=== PATIENT | female | born 1930 | race Caucasian/White ===

== ENCOUNTER 2016-11-01 15:26 | Inpatient (IN) | payer MEDICARE ==
[~2016-11-01] VITALS: Ht 162.6 cm; Wt 56.7 kg
[2016-11-01] MEDS ORDERED: SODIUM CHLORIDE 0.9% 1,000 ML ONE (16:31)
[2016-11-01] MEDS ORDERED: CEFTRIAXONE 1 GM VIAL ONE (16:38)
[2016-11-01] MEDS ORDERED: ALU/MAG/SIM 30 ML UDC PO PRN (18:20)
[2016-11-01] MEDS ORDERED: BISACODYL EC 5 MG TAB PO PRN (18:20)
[2016-11-01] MEDS ORDERED: BISACODYL 10 MG SUPP RECTAL PRN (18:20)
[2016-11-01] MEDS ORDERED: MAG HYDROX 30 ML UDC PO PRN (18:20)
[2016-11-01] MEDS ORDERED: SALINE FLUSH 10 ML FLUSH PRN (18:20)
[2016-11-01 20:42] VITALS: BP_SYST 175; BP_SYST 182; RESP 20; TEMP 98.6; Ht 162.6 cm; Wt 56.7 kg
[2016-11-01] MEDS: SODIUM CHLORIDE 0.9% 1,000 ML IV SCH (21:01)
[2016-11-01] MEDS: SALINE FLUSH 10 ML FLUSH SCH (21:02)
[2016-11-01] MEDS ORDERED: LEVOFLOXACIN 500 MG/100 ML 100 ML IV ONE (22:11)
[2016-11-01 22:44] VITALS: BP_SYST 191; RESP 20; TEMP 97.8
[2016-11-01] MEDS ORDERED: MISSING DOSE XX ONE (23:55)
[2016-11-02] VITALS (10 sets, daily range): BP systolic 85–186; RESP 17–20; TEMP 97.7–98.4
[2016-11-02] MEDS: ACETAMINOPHEN 325 MG TAB PO PRN ×2 (02:10→21:38)
[2016-11-02] MEDS: ONDANSETRON 4 MG VIAL IV PRN (05:21)
[2016-11-02] MEDS: SODIUM CHLORIDE 0.9% FLUSH BAG 500 ML IV SCH (05:38)
[2016-11-02] MEDS: SODIUM CHLORIDE 0.9% 1,000 ML IV SCH ×2 (06:34→21:47)
[2016-11-02] MEDS: SALINE FLUSH 10 ML FLUSH SCH ×2 (08:00→21:37)
[2016-11-02] MEDS: CEFTRIAXONE 1 GM in SODIUM CHLORIDE 0.9% 50 ML IV SCH (08:04)
[2016-11-02] MEDS: LEVOFLOXACIN 250 MG/50 ML 50 ML IV SCH (11:15)
[2016-11-02] MEDS: PRAVASTATIN 10 MG TAB PO SCH (22:21)
[2016-11-02] MEDS: METOPROLOL XL 100 MG TAB PO SCH (22:24)
[2016-11-03] VITALS (7 sets, daily range): BP systolic 117–192; RESP 18–20; TEMP 97.6–98.9
[2016-11-03] MEDS: SODIUM CHLORIDE 0.9% FLUSH BAG 500 ML IV SCH (05:55)
[2016-11-03] MEDS: LEVOTHYROXINE 0.112 MG TAB PO SCH (06:00)
[2016-11-03] MEDS: SODIUM CHLORIDE 0.9% 1,000 ML IV SCH ×2 (07:36→18:41)
[2016-11-03] MEDS: SALINE FLUSH 10 ML FLUSH SCH ×2 (08:00→20:22)
[2016-11-03] MEDS: CEFTRIAXONE 1 GM in SODIUM CHLORIDE 0.9% 50 ML IV SCH (08:52)
[2016-11-03] MEDS: ALLOPURINOL 100 MG TAB PO SCH (08:52)
[2016-11-03] MEDS: LORATADINE 10 MG TAB PO SCH (08:53)
[2016-11-03] MEDS: amLODIPine 5 MG TAB PO SCH (08:53)
[2016-11-03] MEDS: ASPIRIN EC 81 MG TAB PO SCH (08:53)
[2016-11-03] MEDS: LEVOFLOXACIN 250 MG/50 ML 50 ML IV SCH (10:26)
[2016-11-03] MEDS: ACETAMINOPHEN 325 MG TAB PO PRN ×2 (10:30→22:09)
[2016-11-03] MEDS: BISMUTH SUBSAL BTL PO SCH ×2 (17:19→23:13)
[2016-11-03] MEDS: METOPROLOL XL 100 MG TAB PO SCH (20:22)
[2016-11-03] MEDS: PRAVASTATIN 10 MG TAB PO SCH (20:22)
[2016-11-04] VITALS (7 sets, daily range): BP systolic 155–195; RESP 18–20; TEMP 97.7–98.5
[2016-11-04] MEDS: SODIUM CHLORIDE 0.9% 1,000 ML IV SCH ×2 (04:56→15:18)
[2016-11-04] MEDS: SODIUM CHLORIDE 0.9% FLUSH BAG 500 ML IV SCH ×2 (04:56→20:53)
[2016-11-04] MEDS: LEVOTHYROXINE 0.112 MG TAB PO SCH (06:02)
[2016-11-04] MEDS: BISMUTH SUBSAL BTL PO SCH ×4 (06:02→23:19)
[2016-11-04] MEDS: SALINE FLUSH 10 ML FLUSH SCH ×2 (08:57→20:00)
[2016-11-04] MEDS: CEFTRIAXONE 1 GM in SODIUM CHLORIDE 0.9% 50 ML IV SCH (08:58)
[2016-11-04] MEDS: ASPIRIN EC 81 MG TAB PO SCH (08:58)
[2016-11-04] MEDS: amLODIPine 5 MG TAB PO SCH (08:58)
[2016-11-04] MEDS: ALLOPURINOL 100 MG TAB PO SCH (08:58)
[2016-11-04] MEDS: LORATADINE 10 MG TAB PO SCH (08:58)
[2016-11-04] MEDS: ACETAMINOPHEN 325 MG TAB PO PRN ×2 (11:04→21:02)
[2016-11-04] MEDS ORDERED: DESITIN OINT TOPICAL PRN (12:15)
[2016-11-04] MEDS ORDERED: MISSING DOSE XX ONE (13:35)
[2016-11-04] MEDS: DIPHENOXYLATE/ATROP TAB 2.5 MG TAB PO PRN (15:18)
[2016-11-04] MEDS: KCL CR 20 MEQ TAB PO SCH (20:52)
[2016-11-04] MEDS: METOPROLOL XL 100 MG TAB PO SCH (20:52)
[2016-11-04] MEDS: PRAVASTATIN 10 MG TAB PO SCH (20:52)
[2016-11-05] VITALS (8 sets, daily range): BP systolic 152–222; RESP 18–20; TEMP 97.3–99.1
[2016-11-05] MEDS: SODIUM CHLORIDE 0.9% 1,000 ML IV SCH ×3 (01:45→22:42)
[2016-11-05] MEDS: BISMUTH SUBSAL BTL PO SCH ×4 (06:17→22:42)
[2016-11-05] MEDS: LEVOTHYROXINE 0.112 MG TAB PO SCH (06:17)
[2016-11-05] MEDS: SALINE FLUSH 10 ML FLUSH SCH ×2 (08:00→21:36)
[2016-11-05] MEDS ORDERED: MISSING DOSE XX ONE (08:15)
[2016-11-05] MEDS: ASPIRIN EC 81 MG TAB PO SCH (08:43)
[2016-11-05] MEDS: amLODIPine 5 MG TAB PO SCH (08:43)
[2016-11-05] MEDS: KCL CR 20 MEQ TAB PO SCH ×2 (08:43→21:36)
[2016-11-05] MEDS: CEFTRIAXONE 1 GM in SODIUM CHLORIDE 0.9% 50 ML IV SCH (08:43)
[2016-11-05] MEDS: ALLOPURINOL 100 MG TAB PO SCH (08:44)
[2016-11-05] MEDS: LORATADINE 10 MG TAB PO SCH (08:45)
[2016-11-05] MEDS: ONDANSETRON 4 MG VIAL IV PRN (11:19)
[2016-11-05] MEDS: METOPROLOL XL 100 MG TAB PO SCH (21:36)
[2016-11-05] MEDS: PRAVASTATIN 10 MG TAB PO SCH (21:36)
[2016-11-06] VITALS (11 sets, daily range): BP systolic 146–204; RESP 16–20; TEMP 97.2–98.7
[2016-11-06] MEDS ORDERED: MISSING DOSE XX ONE (01:15)
[2016-11-06] MEDS: DIPHENOXYLATE/ATROP TAB 2.5 MG TAB PO PRN ×2 (02:01→11:45)
[2016-11-06] MEDS: SODIUM CHLORIDE 0.9% FLUSH BAG 500 ML IV SCH (06:00)
[2016-11-06] MEDS: LEVOTHYROXINE 0.112 MG TAB PO SCH (06:12)
[2016-11-06] MEDS: BISMUTH SUBSAL BTL PO SCH ×4 (06:12→20:12)
[2016-11-06] MEDS: SALINE FLUSH 10 ML FLUSH SCH ×2 (08:00→20:12)
[2016-11-06] MEDS: SODIUM CHLORIDE 0.9% 1,000 ML IV SCH ×2 (08:49→19:02)
[2016-11-06] MEDS: ALLOPURINOL 100 MG TAB PO SCH (08:49)
[2016-11-06] MEDS: LORATADINE 10 MG TAB PO SCH (08:49)
[2016-11-06] MEDS: amLODIPine 5 MG TAB PO SCH (08:49)
[2016-11-06] MEDS: KCL CR 20 MEQ TAB PO SCH ×2 (08:49→22:20)
[2016-11-06] MEDS: ASPIRIN EC 81 MG TAB PO SCH (08:49)
[2016-11-06] MEDS: CEFTRIAXONE 1 GM in SODIUM CHLORIDE 0.9% 50 ML IV SCH (08:59)
[2016-11-06] MEDS: ACETAMINOPHEN 325 MG TAB PO PRN ×2 (15:10→20:13)
[2016-11-06] MEDS: PRAVASTATIN 10 MG TAB PO SCH (22:19)
[2016-11-06] MEDS: METOPROLOL XL 100 MG TAB PO SCH (22:19)
[2016-11-07] VITALS (8 sets, daily range): BP systolic 137–190; RESP 16–20; TEMP 97.4–97.8
[2016-11-07] MEDS: BISMUTH SUBSAL BTL PO SCH ×2 (03:16→12:34)
[2016-11-07] MEDS: SODIUM CHLORIDE 0.9% FLUSH BAG 500 ML IV SCH (06:00)
[2016-11-07] MEDS: LEVOTHYROXINE 0.112 MG TAB PO SCH (07:29)
[2016-11-07] MEDS: CEFTRIAXONE 1 GM in SODIUM CHLORIDE 0.9% 50 ML IV SCH (08:45)
[2016-11-07] MEDS: ASPIRIN EC 81 MG TAB PO SCH (08:46)
[2016-11-07] MEDS: amLODIPine 5 MG TAB PO SCH (08:46)
[2016-11-07] MEDS: LORATADINE 10 MG TAB PO SCH (08:46)
[2016-11-07] MEDS: SALINE FLUSH 10 ML FLUSH SCH (08:46)
[2016-11-07] MEDS: ONDANSETRON 4 MG VIAL IV PRN (08:46)
[2016-11-07] MEDS: ALLOPURINOL 100 MG TAB PO SCH (08:46)
[2016-11-07] MEDS: KCL CR 20 MEQ TAB PO SCH (08:46)
[2016-11-07] MEDS: ACETAMINOPHEN 325 MG TAB PO PRN (08:47)
[2016-11-07] MEDS ORDERED: PNEUMO VAC 25 MCG/0.5 ML VL IM.VACC ONE (11:45)
[2016-11-07] MEDS ORDERED: TUBERCULIN PPD 5 UNIT SYR ID.VACC ONE (21:00)
[2016-11-08] MEDS ORDERED: ENOXAPARIN 40 MG/0.4 ML SYR SUBQ SCH (09:00)
[2016-11-09] MEDS ORDERED: SKIN TEST: READ AND RECORD XX SCH (21:00)
[2016-11-14] MEDS ORDERED: TUBERCULIN PPD 5 UNIT SYR ID.VACC ONE (21:00)
== END 2016-11-07 14:45 | DRG 690 ==
LOC: ENRESERVDT → ENRESERVTM → ER 15:26 → ENPENDDIS 18:52 → EMR 18:52 → 3NT 20:45
PROVIDERS: ADMIT Internal Medicine; ATTEND Internal Medicine
CPT/HCPCS: 80053; 83630; 85025; 87177; 87329; 87338; 87493; 90732; 94799; 96361; 96374; 99222; 99232; 99239

== ENCOUNTER 2016-11-07 11:51 | Inpatient (IN) | payer MEDICARE ==
[~2016-11-07] VITALS: Ht 162.6 cm; Wt 56.7 kg
[2016-11-07] MEDS ORDERED: POLYETHYLENE GLYCOL 17 GM PACKET PO PRN (12:10)
[2016-11-07] MEDS ORDERED: PNEUMO VAC 25 MCG/0.5 ML VL IM.VACC ONE (12:10)
[2016-11-07] MEDS ORDERED: MAG HYDROX 30 ML UDC PO PRN (12:10)
[2016-11-07] MEDS: PANTOPRAZOLE 40 MG TAB PO SCH (15:08)
[2016-11-07 15:35] VITALS: BP_SYST 189; RESP 20; TEMP 98.6
[2016-11-07 15:40] VITALS: BP_SYST 173
[2016-11-07] MEDS: ACETAMINOPHEN 325 MG TAB PO PRN ×2 (16:43→21:09)
[2016-11-07] MEDS: PRAVASTATIN 10 MG TAB PO SCH (20:46)
[2016-11-07] MEDS: METOPROLOL XL 100 MG TAB PO SCH (20:46)
[2016-11-07] MEDS ORDERED: TUBERCULIN PPD 5 UNIT SYR ID.VACC ONE (21:00)
[2016-11-07] MEDS: ALU/MAG/SIM 30 ML UDC PO PRN (21:09)
[2016-11-08] MEDS: ACETAMINOPHEN 325 MG TAB PO PRN ×3 (02:15→20:59)
[2016-11-08 02:40] VITALS: BP_SYST 183; RESP 20; TEMP 98
[2016-11-08] MEDS: LEVOTHYROXINE 0.112 MG TAB PO SCH (06:11)
[2016-11-08] MEDS: PANTOPRAZOLE 40 MG TAB PO SCH (06:11)
[2016-11-08] MEDS: ASPIRIN EC 81 MG TAB PO SCH (08:03)
[2016-11-08] MEDS: LORATADINE 10 MG TAB PO SCH (08:03)
[2016-11-08] MEDS: ALLOPURINOL 100 MG TAB PO SCH (08:04)
[2016-11-08] MEDS: ENOXAPARIN 40 MG/0.4 ML SYR SUBQ SCH (08:05)
[2016-11-08] MEDS ORDERED: amLODIPine 5 MG TAB PO SCH (09:00)
[2016-11-08 11:24] VITALS: BP_SYST 145; TEMP 98
[2016-11-08 11:26] VITALS: RESP 20
[2016-11-08] MEDS: ALU/MAG/SIM 30 ML UDC PO PRN ×2 (12:17→21:43)
[2016-11-08 18:20] VITALS: BP_SYST 140; RESP 20; TEMP 98.2
[2016-11-08] MEDS: METOPROLOL XL 100 MG TAB PO SCH (20:58)
[2016-11-08] MEDS: PRAVASTATIN 10 MG TAB PO SCH (20:58)
[2016-11-09 01:35] VITALS: BP_SYST 178; RESP 20; TEMP 98.2
[2016-11-09] MEDS: PANTOPRAZOLE 40 MG TAB PO SCH (06:08)
[2016-11-09] MEDS: LEVOTHYROXINE 0.112 MG TAB PO SCH (06:08)
[2016-11-09] MEDS: ASPIRIN EC 81 MG TAB PO SCH (08:00)
[2016-11-09] MEDS: amLODIPine 10 MG TAB PO SCH (08:00)
[2016-11-09] MEDS: LORATADINE 10 MG TAB PO SCH (08:00)
[2016-11-09] MEDS: ALLOPURINOL 100 MG TAB PO SCH (08:00)
[2016-11-09] MEDS: ENOXAPARIN 40 MG/0.4 ML SYR SUBQ SCH (08:01)
[2016-11-09] MEDS: ALU/MAG/SIM 30 ML UDC PO PRN ×3 (09:53→22:04)
[2016-11-09 10:55] VITALS: BP_SYST 167
[2016-11-09 10:56] VITALS: RESP 20; TEMP 98.5
[2016-11-09 15:50] VITALS: BP_SYST 159; RESP 18; TEMP 98.2
[2016-11-09] MEDS: ACETAMINOPHEN 325 MG TAB PO PRN ×2 (16:09→22:02)
[2016-11-09] MEDS: PRAVASTATIN 10 MG TAB PO SCH (20:33)
[2016-11-09] MEDS: METOPROLOL XL 100 MG TAB PO SCH (20:33)
[2016-11-09] MEDS: SKIN TEST: READ AND RECORD XX SCH (20:34)
[2016-11-10 01:49] VITALS: BP_SYST 166; RESP 20; TEMP 97.8
[2016-11-10] MEDS: PANTOPRAZOLE 40 MG TAB PO SCH (05:57)
[2016-11-10] MEDS: LEVOTHYROXINE 0.112 MG TAB PO SCH (05:57)
[2016-11-10 08:02] VITALS: BP_SYST 156; TEMP 98.1
[2016-11-10 08:03] VITALS: RESP 20
[2016-11-10] MEDS: ASPIRIN EC 81 MG TAB PO SCH (08:24)
[2016-11-10] MEDS: LORATADINE 10 MG TAB PO SCH (08:24)
[2016-11-10] MEDS: ALLOPURINOL 100 MG TAB PO SCH (08:24)
[2016-11-10] MEDS: amLODIPine 10 MG TAB PO SCH (08:24)
[2016-11-10] MEDS: ENOXAPARIN 40 MG/0.4 ML SYR SUBQ SCH (08:26)
[2016-11-10 10:02] VITALS: Ht 162.6 cm; Wt 56.7 kg
[2016-11-10] MEDS: ACETAMINOPHEN 325 MG TAB PO PRN ×3 (10:23→20:08)
[2016-11-10] MEDS: [UNRECOGNIZED DRUG - OTHER] PO PRN (15:11)
[2016-11-10] MEDS: BISMUTH SUBSAL BTL PO PRN ×3 (15:17→23:50)
[2016-11-10] MEDS: CYANOCOBA 500 MCG TAB PO SCH (15:17)
[2016-11-10 15:33] VITALS: BP_SYST 171; RESP 20; TEMP 98.1
[2016-11-10] MEDS: METOPROLOL XL 100 MG TAB PO SCH (20:08)
[2016-11-10] MEDS: PRAVASTATIN 10 MG TAB PO SCH (20:08)
[2016-11-10] MEDS: REMOVE SALONPAS TOPICAL SCH ×2 (22:40→23:47)
[2016-11-11 00:39] VITALS: BP_SYST 160; RESP 18; TEMP 98.2
[2016-11-11] MEDS: LEVOTHYROXINE 0.112 MG TAB PO SCH (06:04)
[2016-11-11] MEDS: PANTOPRAZOLE 40 MG TAB PO SCH (06:04)
[2016-11-11] MEDS: REMOVE SALONPAS TOPICAL SCH ×3 (06:40→22:40)
[2016-11-11 08:41] VITALS: TEMP 98
[2016-11-11 08:42] VITALS: BP_SYST 157
[2016-11-11 08:43] VITALS: RESP 20
[2016-11-11] MEDS: LORATADINE 10 MG TAB PO SCH (09:51)
[2016-11-11] MEDS: amLODIPine 10 MG TAB PO SCH (09:51)
[2016-11-11] MEDS: ALLOPURINOL 100 MG TAB PO SCH (09:52)
[2016-11-11] MEDS: ASPIRIN EC 81 MG TAB PO SCH (09:53)
[2016-11-11] MEDS: ACETAMINOPHEN 325 MG TAB PO PRN ×2 (09:58→15:19)
[2016-11-11] MEDS: [UNRECOGNIZED DRUG - OTHER] PO PRN (09:58)
[2016-11-11] MEDS: ENOXAPARIN 40 MG/0.4 ML SYR SUBQ SCH (09:59)
[2016-11-11] MEDS: BISMUTH SUBSAL BTL PO PRN (10:00)
[2016-11-11] MEDS ORDERED: MISSING DOSE XX ONE (10:05)
[2016-11-11] MEDS: CYANOCOBA 500 MCG TAB PO SCH (15:18)
[2016-11-11] MEDS: LOPERAMIDE 2 MG CAPSULE PO PRN (15:18)
[2016-11-11 16:10] VITALS: BP_SYST 121; RESP 18; TEMP 98.4
[2016-11-11] MEDS: PRAVASTATIN 10 MG TAB PO SCH (20:15)
[2016-11-11] MEDS: METOPROLOL XL 100 MG TAB PO SCH (20:16)
[2016-11-12 01:02] VITALS: BP_SYST 178; RESP 18; TEMP 97.7
[2016-11-12 01:03] VITALS: TEMP 97.7
[2016-11-12] MEDS: LEVOTHYROXINE 0.112 MG TAB PO SCH (06:07)
[2016-11-12] MEDS: PANTOPRAZOLE 40 MG TAB PO SCH (06:07)
[2016-11-12] MEDS: REMOVE SALONPAS TOPICAL SCH ×3 (06:07→21:45)
[2016-11-12] MEDS: LORATADINE 10 MG TAB PO SCH (08:53)
[2016-11-12] MEDS: amLODIPine 10 MG TAB PO SCH (08:53)
[2016-11-12] MEDS: ASPIRIN EC 81 MG TAB PO SCH (08:53)
[2016-11-12] MEDS: LOPERAMIDE 2 MG CAPSULE PO PRN ×2 (08:54→12:58)
[2016-11-12] MEDS: ALLOPURINOL 100 MG TAB PO SCH (08:54)
[2016-11-12] MEDS: ACETAMINOPHEN 325 MG TAB PO PRN ×2 (08:55→12:57)
[2016-11-12] MEDS: ENOXAPARIN 40 MG/0.4 ML SYR SUBQ SCH (08:57)
[2016-11-12] MEDS: CYANOCOBA 500 MCG TAB PO SCH (09:00)
[2016-11-12] MEDS: [UNRECOGNIZED DRUG - OTHER] PO PRN (09:02)
[2016-11-12 11:02] VITALS: BP_SYST 138; RESP 20; TEMP 98.3
[2016-11-12] MEDS: MELOXICAM 7.5 MG TAB PO SCH (12:56)
[2016-11-12] MEDS: FAMOTIDINE 20 MG TAB PO SCH ×2 (12:56→21:43)
[2016-11-12 15:52] VITALS: BP_SYST 128; RESP 18; TEMP 98.3
[2016-11-12] MEDS: METOPROLOL XL 100 MG TAB PO SCH (21:43)
[2016-11-12] MEDS: PRAVASTATIN 10 MG TAB PO SCH (21:44)
[2016-11-12] MEDS: BISMUTH SUBSAL BTL PO PRN (21:46)
[2016-11-13 00:52] VITALS: TEMP 98.3
[2016-11-13] MEDS: REMOVE SALONPAS TOPICAL SCH ×3 (06:17→19:57)
[2016-11-13] MEDS: PANTOPRAZOLE 40 MG TAB PO SCH (06:21)
[2016-11-13] MEDS: LEVOTHYROXINE 0.112 MG TAB PO SCH (06:21)
[2016-11-13] MEDS: ENOXAPARIN 40 MG/0.4 ML SYR SUBQ SCH (09:50)
[2016-11-13] MEDS: amLODIPine 10 MG TAB PO SCH (09:50)
[2016-11-13] MEDS: [UNRECOGNIZED DRUG - OTHER] PO PRN (09:50)
[2016-11-13] MEDS: CYANOCOBA 500 MCG TAB PO SCH (09:51)
[2016-11-13] MEDS: FAMOTIDINE 20 MG TAB PO SCH ×2 (09:51→20:22)
[2016-11-13] MEDS: MELOXICAM 7.5 MG TAB PO SCH (09:51)
[2016-11-13] MEDS: ASPIRIN EC 81 MG TAB PO SCH (09:51)
[2016-11-13] MEDS: ALLOPURINOL 100 MG TAB PO SCH (09:51)
[2016-11-13] MEDS: LORATADINE 10 MG TAB PO SCH (09:51)
[2016-11-13 10:01] VITALS: BP_SYST 134; RESP 18; TEMP 98.5
[2016-11-13] MEDS: CEPHALEXIN 250 MG CAP PO SCH ×3 (13:00→20:22)
[2016-11-13 15:02] VITALS: BP_SYST 134; RESP 18; TEMP 98.8
[2016-11-13] MEDS: METOPROLOL XL 100 MG TAB PO SCH (20:22)
[2016-11-13] MEDS: PRAVASTATIN 10 MG TAB PO SCH (20:22)
[2016-11-14 05:07] VITALS: BP_SYST 163; RESP 18; TEMP 98.2
[2016-11-14] MEDS: REMOVE SALONPAS TOPICAL SCH ×3 (06:20→20:16)
[2016-11-14] MEDS: PANTOPRAZOLE 40 MG TAB PO SCH (06:28)
[2016-11-14] MEDS: LEVOTHYROXINE 0.112 MG TAB PO SCH (06:28)
[2016-11-14] MEDS: MELOXICAM 7.5 MG TAB PO SCH (08:51)
[2016-11-14] MEDS: ASPIRIN EC 81 MG TAB PO SCH (08:51)
[2016-11-14] MEDS: amLODIPine 10 MG TAB PO SCH (08:51)
[2016-11-14] MEDS: LORATADINE 10 MG TAB PO SCH (08:51)
[2016-11-14] MEDS: ALLOPURINOL 100 MG TAB PO SCH (08:51)
[2016-11-14] MEDS: CYANOCOBA 500 MCG TAB PO SCH (08:52)
[2016-11-14] MEDS: ENOXAPARIN 40 MG/0.4 ML SYR SUBQ SCH (08:52)
[2016-11-14] MEDS: CEPHALEXIN 250 MG CAP PO SCH ×4 (08:52→20:15)
[2016-11-14] MEDS: FAMOTIDINE 20 MG TAB PO SCH ×2 (08:52→20:15)
[2016-11-14] MEDS: BISMUTH SUBSAL BTL PO PRN ×2 (08:56→20:18)
[2016-11-14 10:20] VITALS: BP_SYST 175; RESP 18; TEMP 98.5
[2016-11-14] MEDS: PRAVASTATIN 10 MG TAB PO SCH (20:15)
[2016-11-14] MEDS: METOPROLOL XL 100 MG TAB PO SCH (20:16)
[2016-11-14 20:21] VITALS: BP_SYST 149; RESP 18; TEMP 98.2
[2016-11-14] MEDS ORDERED: TUBERCULIN PPD 5 UNIT SYR ID.VACC ONE (21:00)
[2016-11-15] MEDS: REMOVE SALONPAS TOPICAL SCH (05:42)
[2016-11-15] MEDS ORDERED: MISSING DOSE XX ONE (05:45)
[2016-11-15 05:53] VITALS: BP_SYST 147; RESP 18; TEMP 98.6
[2016-11-15] MEDS: LEVOTHYROXINE 0.112 MG TAB PO SCH (06:05)
[2016-11-15] MEDS: PANTOPRAZOLE 40 MG TAB PO SCH (06:05)
[2016-11-15] MEDS: BISMUTH SUBSAL BTL PO PRN ×2 (06:05→19:41)
[2016-11-15] MEDS: ENOXAPARIN 40 MG/0.4 ML SYR SUBQ SCH (08:15)
[2016-11-15] MEDS: MELOXICAM 7.5 MG TAB PO SCH (08:16)
[2016-11-15] MEDS: CYANOCOBA 500 MCG TAB PO SCH (08:16)
[2016-11-15] MEDS: CEPHALEXIN 250 MG CAP PO SCH ×4 (08:16→20:28)
[2016-11-15] MEDS: ALLOPURINOL 100 MG TAB PO SCH (08:17)
[2016-11-15] MEDS: LORATADINE 10 MG TAB PO SCH (08:17)
[2016-11-15] MEDS: ASPIRIN EC 81 MG TAB PO SCH (08:17)
[2016-11-15] MEDS: FAMOTIDINE 20 MG TAB PO SCH ×2 (08:18→20:28)
[2016-11-15] MEDS: amLODIPine 10 MG TAB PO SCH (08:18)
[2016-11-15] MEDS: LOPERAMIDE 2 MG CAPSULE PO PRN ×2 (08:19→17:31)
[2016-11-15 11:31] VITALS: BP_SYST 148; RESP 18; TEMP 97.9
[2016-11-15 15:47] VITALS: BP_SYST 143; RESP 18; TEMP 97.8
[2016-11-15] MEDS: ACETAMINOPHEN 325 MG TAB PO PRN (19:42)
[2016-11-15] MEDS: PRAVASTATIN 10 MG TAB PO SCH (20:28)
[2016-11-15] MEDS: METOPROLOL XL 100 MG TAB PO SCH (20:29)
[2016-11-15 20:48] VITALS: BP_SYST 132; RESP 18; TEMP 98.6
[2016-11-16 02:34] VITALS: BP_SYST 142; RESP 18; TEMP 98.3
[2016-11-16 02:35] VITALS: TEMP 98.3
[2016-11-16] MEDS: PANTOPRAZOLE 40 MG TAB PO SCH (06:01)
[2016-11-16] MEDS: LEVOTHYROXINE 0.112 MG TAB PO SCH (06:01)
[2016-11-16] MEDS: CEPHALEXIN 250 MG CAP PO SCH ×4 (08:15→21:04)
[2016-11-16] MEDS: amLODIPine 10 MG TAB PO SCH (08:16)
[2016-11-16] MEDS: CYANOCOBA 500 MCG TAB PO SCH (08:16)
[2016-11-16] MEDS: ASPIRIN EC 81 MG TAB PO SCH (08:16)
[2016-11-16] MEDS: ALLOPURINOL 100 MG TAB PO SCH (08:16)
[2016-11-16] MEDS: FAMOTIDINE 20 MG TAB PO SCH ×2 (08:16→21:04)
[2016-11-16] MEDS: LOPERAMIDE 2 MG CAPSULE PO PRN (08:16)
[2016-11-16] MEDS: LORATADINE 10 MG TAB PO SCH (08:16)
[2016-11-16] MEDS: ENOXAPARIN 40 MG/0.4 ML SYR SUBQ SCH (08:18)
[2016-11-16 09:43] VITALS: BP_SYST 139; RESP 20; TEMP 98.1
[2016-11-16] MEDS: ACETAMINOPHEN 325 MG TAB PO PRN (18:16)
[2016-11-16 20:28] VITALS: BP_SYST 141; RESP 20; TEMP 98.2
[2016-11-16] MEDS: PRAVASTATIN 10 MG TAB PO SCH (21:04)
[2016-11-16] MEDS: METOPROLOL XL 100 MG TAB PO SCH (21:04)
[2016-11-16] MEDS: SKIN TEST: READ AND RECORD XX SCH (21:05)
[2016-11-17] MEDS: LEVOTHYROXINE 0.112 MG TAB PO SCH (06:11)
[2016-11-17] MEDS: PANTOPRAZOLE 40 MG TAB PO SCH (06:11)
[2016-11-17 06:19] VITALS: BP_SYST 145; RESP 20; TEMP 98
[2016-11-17] MEDS: ASPIRIN EC 81 MG TAB PO SCH (07:53)
[2016-11-17] MEDS: LORATADINE 10 MG TAB PO SCH (07:53)
[2016-11-17] MEDS: ALLOPURINOL 100 MG TAB PO SCH (07:53)
[2016-11-17] MEDS: amLODIPine 10 MG TAB PO SCH (07:53)
[2016-11-17] MEDS: CYANOCOBA 500 MCG TAB PO SCH (07:53)
[2016-11-17] MEDS: FAMOTIDINE 20 MG TAB PO SCH ×2 (07:53→20:36)
[2016-11-17] MEDS: CEPHALEXIN 250 MG CAP PO SCH ×4 (07:53→20:36)
[2016-11-17] MEDS: ENOXAPARIN 40 MG/0.4 ML SYR SUBQ SCH (07:54)
[2016-11-17 08:20] VITALS: BP_SYST 150; RESP 20; TEMP 98.3
[2016-11-17] MEDS: MELOXICAM 7.5 MG TAB PO SCH (11:14)
[2016-11-17] MEDS ORDERED: KCL CR 20 MEQ TAB PO ONE (12:40)
[2016-11-17 16:06] VITALS: BP_SYST 134; RESP 20; TEMP 98.3
[2016-11-17] MEDS: PRAVASTATIN 10 MG TAB PO SCH (20:35)
[2016-11-17] MEDS: METOPROLOL XL 100 MG TAB PO SCH (20:35)
[2016-11-17] MEDS: BISMUTH SUBSAL BTL PO PRN (20:36)
[2016-11-17] MEDS: ACETAMINOPHEN 325 MG TAB PO PRN (20:40)
[2016-11-18 05:36] VITALS: BP_SYST 156; RESP 20; TEMP 98.5
[2016-11-18] MEDS: PANTOPRAZOLE 40 MG TAB PO SCH (06:17)
[2016-11-18] MEDS: LEVOTHYROXINE 0.112 MG TAB PO SCH (06:17)
[2016-11-18] MEDS: CEPHALEXIN 250 MG CAP PO SCH ×4 (10:16→20:28)
[2016-11-18] MEDS: ENOXAPARIN 40 MG/0.4 ML SYR SUBQ SCH (10:16)
[2016-11-18] MEDS: CYANOCOBA 500 MCG TAB PO SCH (10:17)
[2016-11-18] MEDS: MELOXICAM 7.5 MG TAB PO SCH (10:17)
[2016-11-18] MEDS: ALLOPURINOL 100 MG TAB PO SCH (10:18)
[2016-11-18] MEDS: ACETAMINOPHEN 325 MG TAB PO PRN (10:19)
[2016-11-18] MEDS: LORATADINE 10 MG TAB PO SCH (10:19)
[2016-11-18] MEDS: amLODIPine 10 MG TAB PO SCH (10:19)
[2016-11-18] MEDS: FAMOTIDINE 20 MG TAB PO SCH ×2 (10:20→20:28)
[2016-11-18] MEDS: ASPIRIN EC 81 MG TAB PO SCH (10:21)
[2016-11-18 10:25] VITALS: BP_SYST 161; RESP 20; TEMP 97.7
[2016-11-18] MEDS ORDERED: KCL CR 20 MEQ TAB PO ONE (13:00)
[2016-11-18 16:20] VITALS: BP_SYST 143; RESP 20; TEMP 97.9
[2016-11-18] MEDS: PRAVASTATIN 10 MG TAB PO SCH (20:28)
[2016-11-18] MEDS: METOPROLOL XL 100 MG TAB PO SCH (20:28)
[2016-11-19] MEDS: PANTOPRAZOLE 40 MG TAB PO SCH (06:02)
[2016-11-19] MEDS: LEVOTHYROXINE 0.112 MG TAB PO SCH (06:02)
[2016-11-19] MEDS: ASPIRIN EC 81 MG TAB PO SCH (07:57)
[2016-11-19] MEDS: ALLOPURINOL 100 MG TAB PO SCH (07:58)
[2016-11-19] MEDS: CYANOCOBA 500 MCG TAB PO SCH (07:58)
[2016-11-19] MEDS: FAMOTIDINE 20 MG TAB PO SCH ×2 (07:59→21:12)
[2016-11-19] MEDS: CEPHALEXIN 250 MG CAP PO SCH ×3 (07:59→21:12)
[2016-11-19] MEDS: MELOXICAM 7.5 MG TAB PO SCH (07:59)
[2016-11-19] MEDS: LORATADINE 10 MG TAB PO SCH (07:59)
[2016-11-19] MEDS: amLODIPine 10 MG TAB PO SCH (07:59)
[2016-11-19] MEDS: ENOXAPARIN 40 MG/0.4 ML SYR SUBQ SCH (08:00)
[2016-11-19 10:06] VITALS: BP_SYST 134; RESP 20; TEMP 97.5
[2016-11-19 15:47] VITALS: BP_SYST 147; RESP 20; TEMP 97.5
[2016-11-19] MEDS: METOPROLOL XL 100 MG TAB PO SCH (21:11)
[2016-11-19] MEDS: PRAVASTATIN 10 MG TAB PO SCH (21:11)
[2016-11-19] MEDS: BISMUTH SUBSAL BTL PO PRN (21:13)
[2016-11-20] MEDS: ACETAMINOPHEN 325 MG TAB PO PRN (00:52)
[2016-11-20 00:59] VITALS: BP_SYST 154; RESP 20; TEMP 98.3
[2016-11-20 01:00] VITALS: TEMP 98.3
[2016-11-20] MEDS: PANTOPRAZOLE 40 MG TAB PO SCH (06:36)
[2016-11-20] MEDS: LEVOTHYROXINE 0.112 MG TAB PO SCH (07:54)
[2016-11-20] MEDS: ENOXAPARIN 40 MG/0.4 ML SYR SUBQ SCH (09:28)
[2016-11-20] MEDS: MELOXICAM 7.5 MG TAB PO SCH (09:29)
[2016-11-20] MEDS: CEPHALEXIN 250 MG CAP PO SCH (09:29)
[2016-11-20] MEDS: FAMOTIDINE 20 MG TAB PO SCH (09:30)
[2016-11-20] MEDS: LORATADINE 10 MG TAB PO SCH (09:30)
[2016-11-20] MEDS: ALLOPURINOL 100 MG TAB PO SCH (09:30)
[2016-11-20] MEDS: CYANOCOBA 500 MCG TAB PO SCH (09:30)
[2016-11-20] MEDS: amLODIPine 10 MG TAB PO SCH (09:30)
[2016-11-20] MEDS: BISMUTH SUBSAL BTL PO PRN (09:31)
[2016-11-20] MEDS: ASPIRIN EC 81 MG TAB PO SCH (09:31)
[2016-11-20 11:04] VITALS: BP_SYST 156; RESP 20; TEMP 97.6
[2016-11-20 11:11] VITALS: BP_SYST 156; RESP 20; TEMP 97.6
== END 2016-11-20 12:58 | disposition home health service (06) | DRG 556 ==
LOC: NF 14:48
PROVIDERS: ADMIT Family Medicine; ATTEND Family Medicine
DX: R26.2 Difficulty in walking, not elsewhere classified (principal); N39.0 Urinary tract infection, site not specified; I10 Essential (primary) hypertension; E78.5 Hyperlipidemia, unspecified; Z86.73 Personal history of transient ischemic attack (TIA), and cerebral infarction without residual deficits; B95.1 Streptococcus, group B, as the cause of diseases classified elsewhere
CPT/HCPCS: 36415; 80048; 82565; 84132; 84550; 85025; 85652; 86141; 86580; 99305; 99308; 99309; 99316